=== PATIENT | female | born 1935 | race Caucasian/White ===

== ENCOUNTER 2017-03-16 11:14 | Emergency (ER) | payer MEDICARE, BC ==
[~2017-03-16] VITALS: Ht 154.9 cm; Wt 79.5 kg
[2017-03-16] MEDS ORDERED: ACETAMINOPHEN 325 MG TABLET ONE (11:51)
[2017-03-16] MEDS ORDERED: CYCLOBENZAPRINE 10 MG TABLET ONE (11:51)
[2017-03-16] MEDS ORDERED: CYCLOBENZAPRINE 10 MG TABLET PO SCH (12:00)
[2017-03-16] MEDS ORDERED: ACETAMINOPHEN 325 MG TABLET PO ONE (12:00)
[2017-03-16 12:12] LABS: HEMOGLOBIN 14.4 g/dL (11.7-16.4); WHITE BLOOD COUNT 8.5 x10^3/uL (3.4-10)
[2017-03-16 12:25] LABS: ASPARTATE AMINO TRANSFERASE 13 U/L (15-37); BLOOD UREA NITROGEN 18 mg/dL (7-18)
[2017-03-16 12:30] LABS: IS PT STATUS REG ER OR PRE ER? YES
[2017-03-16 14:08] VITALS: BP 206/81
== END 2017-03-16 14:11 | disposition home or self-care (01) ==
LOC: ED 13:12
DX: S39.012A Strain of muscle, fascia and tendon of lower back, initial encounter (principal); S29.012A Strain of muscle and tendon of back wall of thorax, initial encounter; N30.00 Acute cystitis without hematuria; I10 Essential (primary) hypertension; E78.00 Pure hypercholesterolemia, unspecified
CPT/HCPCS: 36415; 71020; 80053; 81001; 83880; 84484; 85025; 87086; 93005; 99285